=== PATIENT | male | born 1985 | race Caucasian/White ===

== ENCOUNTER 2023-11-18 20:56 | Emergency (ER) | payer OTHER ==
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
[2023-11-18 21:57] VITALS: BP 118/85; PULSE 91; RESP 16; TEMP 98.5
== END 2023-11-18 22:12 | disposition home or self-care (01) ==
LOC: EC 20:56
DX: T68.XXXA Hypothermia, initial encounter (principal); F17.200 Nicotine dependence, unspecified, uncomplicated; F12.90 Cannabis use, unspecified, uncomplicated; Z88.6 Allergy status to analgesic agent; Z59.00 Homelessness unspecified; X31.XXXA Exposure to excessive natural cold, initial encounter
CPT/HCPCS: 99284